=== PATIENT | male | born 1965 | race Caucasian/White ===

== ENCOUNTER 2019-07-30 11:29 | Emergency (ER) | payer OTHER ==
[~2019-07-30] VITALS: Ht 172.7 cm; Wt 81.7 kg
[2019-07-30 12:49] LABS: BASOPHILS ABSOLUTE AUTO 0.05 K/mm3 (0.00-0.23); BASOPHILS PERCENT AUTO 1 % (0-2); EOSINOPHILS ABSOLUTE AUTO 0.17 K/mm3 (0.00-0.68); EOSINOPHILS PERCENT AUTO 2 % (0-6); Hematocrit 51.1 % (37.0-53.0); Hemoglobin 16.7 g/dL (13.5-17.5); IMMATURE GRAN ABSOLUTE AUTO 0.03 K/mm3 (0.00-0.10); IMMATURE GRAN PERCENT AUTO 0 % (0-1); LYMPHOCYTES ABSOLUTE AUTO 1.65 K/mm3 (0.84-5.20); LYMPHOCYTES PERCENT AUTO 16 % (21-46); MONOCYTES ABSOLUTE AUTO 0.64 K/mm3 (0.16-1.47); MONOCYTES PERCENT AUTO 6 % (4-13); Mean Corpuscular HGB 28.9 pg (26.0-34.0); Mean Corpuscular HGB Conc 32.7 g/dL (31.5-36.5); Mean Corpuscular Volume 89 fL (80-100); Mean Platelet Volume 11.5 fL (9.1-12.4); NEUTROPHILS ABSOLUTE AUTO 8.06 K/mm3 (1.96-9.15); NEUTROPHILS PERCENT AUTO 76 % (41-73); Platelet Count 211 K/mm3 (150-400); RDW Coefficient Variation 13.5 % (11.7-14.2); RDW Standard Deviation 43.7 fL (35.1-46.3); Red Blood Cell Count 5.77 M/mm3 (4.30-5.90)
[2019-07-30 13:08] LABS: Alanine Aminotransfer (ALT/SGP 25 U/L (12-78); Albumin, Blood 4.2 g/dL (3.4-5.0); Albumin/Globulin Ratio 1.1 (0.8-1.8); Alk Phos 83 U/L (50-136); Anion Gap 8 mmol/L (6-16); Aspartate Aminotrans (AST/SGOT 21 U/L (12-37); Bilirubin, Total 0.9 mg/dL (0.1-1.0); Blood Urea Nitrogen 11 mg/dL (8-24); CO2, Blood 24 mmol/L (21-32); Calcium, Blood 9.2 mg/dL (8.5-10.1); Chloride, Blood 106 mmol/L (98-108); Creatinine, Blood 0.79 mg/dL (0.60-1.20); Globulin, Blood 3.7 g/dL (2.2-4.0); Glomerular Filtration Rate >60 (60-); Glucose, Blood 88 mg/dL (70-99); Potassium, Blood 3.9 mmol/L (3.5-5.5); Sodium, Blood 138 mmol/L (136-145); Total Protein, Blood 7.9 g/dL (6.4-8.2); Troponin I <0.015 ng/mL (0.000-0.040)
[2019-07-30] MEDS ORDERED: METPRE4DP PO (15:54)
[2019-07-30] MEDS ORDERED: Ventolin/Prove6.7 GM INH (15:54)
== END 2019-07-30 16:09 | disposition home or self-care (01) ==
LOC: ER 11:29
PROVIDERS: Emergency Medicine
DX: R07.9 Chest pain, unspecified (principal); F17.200 Nicotine dependence, unspecified, uncomplicated
CPT/HCPCS: 36415; 71046; 80053; 83690; 84484; 85025; 85379; 93005; 93010; 99285-25

== ENCOUNTER 2021-10-01 09:42 | Day surgery (SDC) | payer OTHER ==
[~2021-10-01] VITALS: Ht 172.7 cm; Wt 97.4 kg
[~2021-10-01 09:42] MED LIST: METPRE4DP PO; Ventolin/Prove6.7 GM INH
[2021-10-01] MEDS ORDERED: METO25ER (10:13)
[2021-10-01] MEDS ORDERED: LOW DOSE ASPIRI81 MG (10:13)
--- NOTE | 2021-10-01 11:03 | NUR ---
10/01/21 1103 Jackie Bravo IV ATTMEPTS FOLLOWS: R HAND - UNABLE TO THREAD - CML R FOOT - FLASH, PT UNABLE TO TOLERATE, ASKED FOR IT TO BE REMOVED IMMEDIATELY R THUMB - UNABLE TO THREAD - CML R FOREARM - NO FLASH - JST L FOREARM - NO FLASH - JST L HAND - NO FLASH - JST PT REFUSES ANY MORIV ATTEMPTS AND STATES HE WANTS PROCEDURE CANCELLED. DR. TORRES NOTIFIED.
== END 2021-10-01 10:55 | disposition home or self-care (01) ==
LOC: ORSCSDS 09:42
DX: K62.5 Hemorrhage of anus and rectum (principal); Z53.9 Procedure and treatment not carried out, unspecified reason
CPT/HCPCS: J0330; J0461; J2405; J2704; J7120

== ENCOUNTER → 2024-01-05 | Outpatient (CLI) | payer OTHER ==
[~2024-01-05] MED LIST changes: +LOW DOSE ASPIRI81 MG; +METO25ER
[2024-01-05 17:48] LABS: U Amphetamine Screen Not Detected; U Barbituate Screen Not Detected; U Benzodiazapine Screen Not Detected; U Buprenorphine Screen Not Detected; U Cannabinoids Screen DETECTED; U Cocaine Screen Not Detected; U Methadone Screen Not Detected; U Methamphetamine Screen Not Detected; U Opiates Screen Not Detected; U Phencyclidine Screen Not Detected
[2024-01-05 17:49] LABS: U Oxycodone Screen Not Detected
== END ==
LOC: LAB SHORT 16:34 → LAB 16:34
PROVIDERS: Nurse Practitioner Family
DX: Z51.81 Encounter for therapeutic drug level monitoring (principal); Z79.899 Other long term (current) drug therapy
CPT/HCPCS: 88305